=== PATIENT | female | born 1985 | race African-American/Black ===

== ENCOUNTER 2018-09-10 07:50 | Emergency (ER) | payer SELFPAY ==
--- NOTE | 2018-09-10 08:09 | ER Document Report ---
ED Neck/Back Problem - General Chief Complaint: Back Pain Stated Complaint: FALL Time Seen by Provider: 09/10/18 08:07 Primary Care Provider: YOLIE LU MD [ACTIVE STAFF] - Follow up as needed ARCELIA MCQUEEN MD [ACTIVE STAFF] - Follow up as needed Mode of Arrival: Ambulatory Information source: Patient Notes: Patient is a 33-year-old female who presents to the ER today for lower back pain/tailbone pain after slipping and falling in the bathroom last night, landing on her bottom. She denies hitting her head or loss of consciousness, pain or injury anywhere else, numbness or tingling, radiation down her legs or loss of bladder or bowel function. - Related Data Allergies/Adverse Reactions: No Known Allergies Allergy (Unverified 09/10/18 07:51) Past Medical History - General Information source: Patient - Social History Smoking Status: Never Smoker Family History: Reviewed & Not Pertinent Review of Systems - Review of Systems Constitutional: No symptoms reported EENT: No symptoms reported Cardiovascular: No symptoms reported Respiratory: No symptoms reported Gastrointestinal: No symptoms reported Genitourinary: No symptoms reported Female Genitourinary: No symptoms reported Musculoskeletal: See HPI Skin: No symptoms reported Hematologic/Lymphatic: No symptoms reported Neurological/Psychological: No symptoms reported Physical Exam - Vital signs Vitals: Temp Pulse Resp BP Pulse Ox 98.1 F 65 16 153/81 H 100 09/10/18 07:56 09/10/18 07:56 09/10/18 07:56 09/10/18 07:56 09/10/18 07:56 - Notes Notes: PHYSICAL EXAMINATION: GENERAL: Hunched over, crying in pain, otherwise in no acute distress. HEAD: Atraumatic, normocephalic. EYES: Pupils equal round and reactive to light, extraocular movements intact, sclera anicteric, conjunctiva are normal. NECK: Normal range of motion, supple without lymphadenopathy LUNGS: CTAB and equal. No wheezes rales or rhonchi. HEART: Regular rate and rhythm without murmurs ABDOMEN: Soft, no tenderness. No guarding, no rebound BACK: Lower lumbar, sacral vertebral tenderness, GI/: no CVA tenderness EXTREMITIES: Normal range of motion, no pitting edema. No cyanosis. NEUROLOGICAL: Cranial nerves grossly intact. Normal sensory/motor exams. PSYCH: Normal mood, normal affect. SKIN: Warm, Dry, normal turgor, no rashes or lesions noted Course - Re-evaluation Re-evalutation: 09/10/18 09:39 X-ray of the lumbar spine and sacrum and coccyx negative for any acute pathology, patient be given a short course of pain medication and muscle relaxer. Toradol shot did relieve some of her pain here. - Vital Signs Vital signs: Temp Pulse Resp BP Pulse Ox 98.1 F 60 16 154/87 H 100 09/10/18 09:59 09/10/18 09:59 09/10/18 07:56 09/10/18 09:59 09/10/18 09:59 Discharge - Discharge Clinical Impression: Back injury Qualifiers: Encounter type: initial encounter Qualified Code(s): S39.92XA - Unspecified injury of lower back, initial encounter Condition: Stable Disposition: HOME, SELF-CARE Additional Instructions: Return immediately for any new or worsening symptoms. Follow up with primary care provider, call tomorrow to make followup appointment. Prescriptions: Cyclobenzaprine HCl [Flexeril 10 mg Tablet] 10 mg PO TIDP PRN #15 tab PRN Reason: Hydrocodone/Acetaminophen [[place] 5-325 mg Tablet] 1 tab PO Q4H PRN #12 tablet PRN Reason: Forms: Return to Work Referrals: YOLIE LU MD [ACTIVE STAFF] - Follow up as needed ARCELIA MCQUEEN MD [ACTIVE STAFF] - Follow up as needed
[2018-09-10] MEDS ORDERED: KETOROLAC TROMETHAMINE 60 MG/2 ML SDV IM ONE (08:41)
--- NOTE | 2018-09-10 09:35 | RADIOLOGY REPORT (SQ) ---
EXAM DESCRIPTION: SACRUM AND COCCYX COMPLETED DATE/TIME: 09/10/2018 9:08 am REASON FOR STUDY: fall, pain COMPARISON: Lumbar spine plain films same date NUMBER OF VIEWS: Three views. TECHNIQUE: AP, lateral, and tilt views of the sacrum and coccyx. LIMITATIONS: None. FINDINGS: MINERALIZATION: Normal. BONES: No acute fracture or dislocation. No worrisome bone lesions. SOFT TISSUES: No soft tissue swelling. No foreign body. OTHER: No other significant finding. IMPRESSION: NEGATIVE STUDY OF THE SACRUM AND COCCYX. TECHNICAL DOCUMENTATION: JOB ID: [id number] [employer]- All Rights Reserved Reading location - IP/workstation name: [email or web address]
--- NOTE | 2018-09-10 09:37 | RADIOLOGY REPORT (SQ) ---
EXAM DESCRIPTION: L SPINE WHOLE COMPLETED DATE/TIME: 09/10/2018 9:08 am REASON FOR STUDY: fall, pain COMPARISON: None. NUMBER OF VIEWS: Five views including obliques. TECHNIQUE: AP, lateral, oblique, and sacral radiographic images acquired of the lumbar spine. LIMITATIONS: None. FINDINGS: MINERALIZATION: Normal. SEGMENTATION: Normal. No transitional anatomy. ALIGNMENT: Normal. VERTEBRAE: Maintained height. No fracture or worrisome bone lesion. DISCS: Preserved height. No significant osteophytes or end plate irregularity. POSTERIOR ELEMENTS: Pedicles and facets are intact. No pars defect or posterior arch defects. HARDWARE: None in the spine. PARASPINAL SOFT TISSUES: Along the right lower pole kidney, radiopaque 10 mm and 12 mm calculi are johnson spected. PELVIS: SI joints intact OTHER: No other significant finding. IMPRESSION: No acute fracture or malalignment Suspect intrarenal right lower pole nonobstructive stones TECHNICAL DOCUMENTATION: JOB ID: [id number] [employer]- All Rights Reserved Reading location - IP/workstation name: [email or web address]
[2018-09-10 10:02] VITALS: BP 154/87
== END 2018-09-10 10:02 | disposition home or self-care (01) ==
LOC: ER 07:50
DX: S39.92XA Unspecified injury of lower back, initial encounter (principal); M54.9 Dorsalgia, unspecified; M54.5 Low back pain; W01.0XXA Fall on same level from slipping, tripping and stumbling without subsequent striking against object, initial encounter; Y92.002 Bathroom of unspecified non-institutional (private) residence as the place of occurrence of the external cause
CPT/HCPCS: 99283; 96372; 72220; 72110; J1885

== ENCOUNTER 2020-05-23 01:36 | Emergency (ER) | payer SELFPAY ==
[2020-05-23] MEDS ORDERED: MORPHINE SULFATE 10 MG/ML INJ IV ONE (02:30)
[2020-05-23] MEDS ORDERED: ONDANSETRON HCL INJ/PF 4 MG/2 ML SDV IV ONE (02:31)
--- NOTE | 2020-05-23 02:33 | ER Document Report ---
ED Medical Screen (RME) - General Stated Complaint: ABDOMINAL PAIN Notes: 34-year-old female chief complaint of sharp mid abdominal pain that started about 2 to 3 hours prior to arrival. She states she has an umbilical hernia after a "large child", she states that area suddenly started hurting and became very painful tonight and felt like it was protruding a lot. She states she is normally able to push the area back in. Denies vomiting, last meal was dinner time, bowel movements normal. - Related Data Allergies/Adverse Reactions: No Known Allergies Allergy (Unverified 09/10/18 07:51) Past Medical History Renal/ Medical History: Denies: Hx Peritoneal Dialysis Past Surgical History: Reports: Hx Section Physical Exam - Vital signs Vitals: Temp Pulse Resp BP Pulse Ox 97.3 F 55 L 21 H 124/99 H 100 05/23/20 01:54 05/23/20 01:54 05/23/20 01:54 05/23/20 01:54 05/23/20 01:54 - General General appearance: Other - Patient bent over, holding her abdomen, crying - Abdominal Tenderness: Tender - Patient is tender in the general abdomen, there does appear to be a small umbilical hernia with tenderness but I do not notice erythema or rigidity. Exam is very limited based on positioning, triage location Course - Re-evaluation Re-evalutation: 05/23/20 02:32 Pain appears to be from umbilical hernia although it is difficult to identify whether this is incarcerated or not therefore patient will be triage level 2. Work-up pending. I have greeted and performed a rapid initial assessment of this patient. A comprehensive ED assessment and evaluation of the patient, analysis of test results and completion of the medical decision making process will be conducted by additional ED providers. - Vital Signs Vital signs: Temp Pulse Resp BP Pulse Ox 97.3 F 55 L 21 H 124/99 H 100 05/23/20 01:54 05/23/20 01:54 05/23/20 01:54 05/23/20 01:54 05/23/20 01:54
[2020-05-23 03:05] LABS: ABSOLUTE EOSINOPHILS # (AUTO) 0.1 10^3/uL (0.0-0.6); ABSOLUTE LYMPHOCYTES (AUTO) 1.1 10^3/uL (0.5-4.7); ABSOLUTE MONOCYTES (AUTO) 0.4 10^3/uL (0.1-1.4); ABSOLUTE NEUT (AUTO) 6.6 10^3/uL (1.7-8.2); BASOPHILS % (AUTO) 0.5 % (0-2); EOSINOPHILS % (AUTO) 1.6 % (0-6); HEMATOCRIT 32.3 % (36.0-47.0); HEMOGLOBIN 10.8 g/dL (12.0-15.5); LYMPHOCYTES % (AUTO) 12.9 % (13-45); MEAN CORPUSCULAR HEMOGLOBIN 28.9 pg (27.0-33.4); MEAN CORPUSCULAR HGB CONC 33.4 g/dL (32.0-36.0); MEAN CORPUSCULAR VOLUME 86 fl (80-97); MONOCYTES % (AUTO) 4.3 % (3-13); PLATELET COUNT 189 10^3/uL (150-450); RED BLOOD COUNT 3.74 10^6/uL (3.72-5.28); RED CELL DISTRIBUTION WIDTH 16.4 % (11.5-14.0); SEGMENTED NEUTROPHILS % (AUTO) 80.7 % (42-78); TOTAL CELLS COUNTED % (AUTO) 100 %; WHITE BLOOD COUNT 8.2 10^3/uL (4.0-10.5)
[2020-05-23] MEDS ORDERED: FENTANYL CITRATE INJ/PF 100 MCG/2 ML AMPUL IV ONE (03:25)
[2020-05-23 03:27] LABS: ALBUMIN 4.4 g/dL (3.5-5.0); ALKALINE PHOSPHATASE 68 U/L (38-126); ANION GAP 7 (5-19); ASPARTATE AMINO TRANSFERASE 24 U/L (14-36); BILIRUBIN,DIRECT 0.2 mg/dL (0.0-0.4); BILIRUBIN,TOTAL 0.4 mg/dL (0.2-1.3); BLOOD UREA NITROGEN 15 mg/dL (7-20); CALCIUM 10.7 mg/dL (8.4-10.2); CARBON DIOXIDE 29 mmol/L (22-30); CHLORIDE 104 mmol/L (98-107); GLUCOSE 105 mg/dL (75-110); POTASSIUM 3.5 mmol/L (3.6-5.0); TOTAL PROTEIN 7.4 g/dL (6.3-8.2)
[2020-05-23] MEDS ORDERED: HYDROCODONE/ACETAMINOPHEN 5-325 MG (6 TAB/ER DISP) PO PRN (04:06)
[2020-05-23] MEDS ORDERED: ONDANSETRON ODT 4 MG TAB (6 TAB/ER DISP) PO PRN (04:07)
--- NOTE | 2020-05-23 04:13 | ER Document Report ---
ED GI/ - General Chief Complaint: Abdominal Pain Stated Complaint: ABDOMINAL PAIN Time Seen by Provider: 05/23/20 02:33 [facility]Provider Group] - Follow up as needed Notes: Patient is a 34-year-old female that comes to the Emergency Department for chief complaint of sharp mid abdominal pain that started about 2 to 3 hours prior to arrival. She states she has an umbilical hernia after a "large child", she states that area suddenly started hurting and became very painful tonight and felt like it was protruding a lot. She states she is normally able to push the area back in. Denies vomiting, last meal was dinner time, bowel movements normal. She smokes. - Related Data Allergies/Adverse Reactions: No Known Allergies Allergy (Unverified 09/10/18 07:51) Past Medical History - General Information source: Patient - Social History Smoking Status: Current Every Day Smoker Smoking Education Provided: Yes - <3 min Drug Abuse: None Lives with: Family Family History: Reviewed & Not Pertinent Renal/ Medical History: Denies: Hx Peritoneal Dialysis Past Surgical History: Reports: Hx Section - Immunizations Immunizations up to date: Yes Hx Diphtheria, Pertussis, Tetanus Vaccination: Yes Review of Systems - Review of Systems Constitutional: No symptoms reported EENT: No symptoms reported Cardiovascular: No symptoms reported Respiratory: No symptoms reported Gastrointestinal: See HPI Genitourinary: No symptoms reported Female Genitourinary: No symptoms reported Musculoskeletal: No symptoms reported Skin: No symptoms reported Hematologic/Lymphatic: No symptoms reported Neurological/Psychological: No symptoms reported Physical Exam - Vital signs Vitals: Temp Pulse Resp BP Pulse Ox 97.3 F 55 L 21 H 124/99 H 100 05/23/20 01:54 05/23/20 01:54 05/23/20 01:54 05/23/20 01:54 05/23/20 01:54 - Notes Notes: GENERAL: Patient anxious and appears to be in pain HEAD: Normocephalic, atraumatic. EYES: Pupils equal, round, and reactive to light. Extraocular movements intact. ENT: Oral mucosa moist, tongue midline. Oropharynx unremarkable. Airway patent. NECK: Full range of motion. Supple. Trachea midline. No lymphadenopathy. LUNGS: Clear to auscultation bilaterally, no wheezes, rales, or rhonchi. No respiratory distress. Non-tender chest wall. HEART: Regular rate and rhythm. No murmur ABDOMEN: Tender over the periumbilical area with a umbilical hernia noted. The area is not erythematous or indurated. Remaining abdomen unremarkable. Bowel s ounds are present throughout. EXTREMITIES: Moves all 4 extremities spontaneously. No edema, normal radial and dorsalis pedis pulses bilaterally. No cyanosis. BACK: no cervical, thoracic, lumbar midline tenderness. No saddle anesthesia, normal distal neurovascular exam. Moves all extremities in full range of motion. NEUROLOGICAL: Alert and oriented x3. Normal speech. Cranial nerves II through XII grossly intact. Strength 5/5 in all extremities. PSYCH: Somewhat agitated SKIN: Warm, dry, normal turgor. No rashes or lesions noted. Course - Re-evaluation Re-evalutation: Area is easier to evaluate now that patient is on bed. There is tenderness over the umbilical hernia although the area is not hard, erythematous, and there is no other concerning finding. The area was reduced easily after patient was given pain medication. After this patient had significant improvement and only complains of a soreness over the area. She does not have any vomiting, she was able to move her bowels. CBC, chemistry, lactic acid unremarkable, hCG is negative. Patient very appreciative, she states this happened once before now, she states that she almost has insurance and is planning on following up closely with the surgeon if she is provided with a referral, she was provided with this and medications. Discussed recommendations, provided with work release, discussed return precautions in detail. Patient states appreciation and ag reement. Stable and well-appearing at time of discharge. - Vital Signs Vital signs: Temp Pulse Resp BP Pulse Ox 97.4 F 60 16 165/99 H 100 05/23/20 04:45 05/23/20 04:45 05/23/20 04:45 05/23/20 04:45 05/23/20 04:45 - Laboratory Result Diagrams: 05/23/20 02:48 05/23/20 02:48 Laboratory results interpreted by me: 05/23/20 05/23/20 05/23/20 02:48 02:48 02:48 Hgb 10.8 L Hct 32.3 L RDW 16.4 H Lymph % (Auto) 12.9 L Seg Neutrophils % 80.7 H Potassium 3.5 L Est GFR (MDRD) Non-Af 51 L Lactic Acid 0.6 L Calcium 10.7 H Discharge - Discharge Clinical Impression: Abdominal pain Qualifiers: Abdominal location: generalized Qualified Code(s): R10.84 - Generalized abdominal pain Umbilical hernia Qualifiers: Obstruction and gangrene presence: without obstruction or gangrene Qualified Code(s): K42.9 - Umbilical hernia without obstruction or gangrene Condition: Stable Disposition: HOME, SELF-CARE Additional Instructions: Your evaluation is consistent with an umbilical hernia, this was reduced in the emergency department tonight. There may be some soreness to the area, you have been provided with some pain medications to take using the precautions listed. I recommend the Colace stool softener to avoid constipation as well. Please follow-up closely with the surgical clinic for additional management including preparations for repair. Call the listed referral today for close follow-up. I recommend that you stop smoking, this causes worsening progression of hernias. Avoid heavy lifting if possible. Return if you worsen including severe pain, vomiting, if the area becomes hard, red, if you cannot push it back in, or any other concerning symptoms. Prescriptions: Docusate Sodium [Colace 100 mg Capsule] 100 mg PO ASDIR PRN #30 capsule PRN Reason: Hydrocodone/Acetaminophen [[place] 5-325 mg Tablet] 1 - 2 tab PO Q6H PRN #12 tablet PRN Reason: Ondansetron [Zofran Odt 4 mg Tablet] 1 - 2 tab PO Q4H PRN #15 tab.rapdis PRN Reason: For Nausea/Vomiting Forms: Return to Work Referrals: [facility] [Provider Group] - Follow up as needed
[2020-05-23 04:49] VITALS: BP 165/99
== END 2020-05-23 04:49 | disposition home or self-care (01) ==
LOC: ER 01:36
DX: K42.9 Umbilical hernia without obstruction or gangrene (principal); R10.84 Generalized abdominal pain; R10.815 Periumbilic abdominal tenderness; F17.200 Nicotine dependence, unspecified, uncomplicated
CPT/HCPCS: 99284; 96374; 96375; 36415; 83605; 83690; 84703; 85025; 80053; J3010; J2270; J2405